=== PATIENT | female | born 1955 | race Two or more races ===

== ENCOUNTER 2022-05-21 12:05 | Inpatient (IN) | payer MEDICARE, SELFPAY ==
[2022-05-21 12:43] VITALS: BP 150/82; PULSE 72; RESP 17; TEMP 36.5; O2SAT 97; BMI 34.7
[2022-05-21] MEDS: CLARIFY ORDER NOTE (14:10)
[2022-05-21] MEDS: Loperamide 2 MG Capsule PO (17:14)
[2022-05-21] MEDS: 0.9% Saline Lock 10 ML Syringe IV (17:14)
[2022-05-21] MEDS: Menthol/Lanolin/Calamine/Znox 113 GM Tube 1 APPLIC TOPICAL ×2 (17:14→21:02)
--- NOTE | 2022-05-21 19:21 | HP.PCM_ITS ---
HPI - General General Date of Admission: 05/21/22 Date of Service: 05/21/22 Chief Complaint: Here for rehabilitation. HPI Narrative TIARA DELGADO, is a 66 Female who presents with followin04/01/2022 [facility] right ELVER total knee arthroplasty. 05/16/2022 Dr. Pastrana performs right knee manipulation under anesthesia for right knee contracture. 05/17/2022 Patient diagnosed with right femur fracture, no falls, no trauma at home. 05/20/2022 Doppler ultrasound bilateral lower extremities negative DVT. Right femur fracture treated with right knee immobilizer. 05/21/2022 Admit to TCU with debility, here for rehabilitation, strengthening, prior to discharge home with . [facility] Medical History (Updated 05/21/22 @ 19:[address] Lyle Perez MD) Celiac disease Depression Fibromyalgia GERD (gastroesophageal reflux disease) Hypertension Irritable bowel syndrome Obstructive sleep apnea Osteoarthritis of right knee Right femoral fracture Sjogrens syndrome Home Medications amlodipine 5 mg tablet 5 mg PO DAILY HTN 05/21/22 [History Last Taken Unknown] carboxymethylcellulose sodium 1 % eye liquid gel drops 2 drp EACH EYE DAILY PRN Dry Eyes 05/21/22 [History Last Taken Unknown] chlordiazepoxide-clidinium 5 mg-2.5 mg capsule 1 cap PO DAILY IBS 05/21/22 [History Last Taken Unknown] cholecalciferol (vitamin D3) 25 mcg (1,000 unit) tablet (Vitamin D3) 25 mcg PO DAILY vitamin D3 05/21/22 [History Last Taken Unknown] doxycycline hyclate 50 mg capsule 50 mg PO DAILY eyes 05/21/22 [History Last Taken Unknown] hydroxychloroquine 100 mg tablet 100 mg PO QHS Check with primary doctor 05/21/22 [History Last Taken Unknown] hydroxychloroquine 200 mg tablet 200 mg PO DAILY Check with primary doctor 05/21/22 [History Last Taken Unknown] multivitamin (Daily Multi-Vitamin tablet) 1 tab PO DAILY vitamin 05/21/22 [History Last Taken Unknown] multivitamin with minerals 1 tab PO DAILY vitamin 05/21/22 [History Last Taken Unknown] oxycodone-acetaminophen 5 mg-325 mg tablet (Percocet) 1 tab PO Q4H PRN Pain (Scale Score 6-10) 05/21/22 [History Last Taken Unknown] sodium fluoride 1.1 %-potassium nitrate 5 % dental paste (PreviDent 5000 Enamel Protect) 1 applic dental DAILY teeth 05/21/22 [History Last Taken Unknown] terbinafine HCl 1 % topical cream 1 applic topical BID PRN Rash 05/21/22 [History Last Taken Unknown] topiramate 100 mg tablet 50 mg PO QHS sjogrens 05/21/22 [History Last Taken Unknown] topiramate 100 mg tablet 100 mg PO DAILY sjogrens 05/21/22 [History Last Taken Unknown] trazodone 100 mg tablet 150 mg PO QHS sleep 05/21/22 [History Last Taken Unknown] valsartan 320 mg tablet 320 mg PO DAILY blood pressure 05/21/22 [History Last Taken Unknown] Allergy/AdvReac Type Severity Reaction Status Date / Time pregabalin [From Lyrica] Allergy Angioedema Verified 05/21/22 14:14 sertraline [From Zoloft] Allergy Hives Verified 05/21/22 14:14 Sulfa (Sulfonamide Allergy Rash Verified 05/21/22 14:04 Antibiotics) [sulfa drugs] mupirocin AdvReac Itching Verified 05/21/22 14:04 NSAIDS (Non-Steroidal AdvReac Chest Verified 05/21/22 14:04 Anti-Inflamma tightness Family History (Updated 05/21/22 @ 19:[address] Lyle Perez MD) Mother Diabetes Shortness of breath Liver disease CVA (cerebral vascular accident) Father Sepsis Surgical History (Updated 05/21/22 @ 19:[address] Lyle Perez MD) History of 2 sections History of surgical removal of ganglion cyst History of total left knee replacement History of total right hip arthroplasty History of total right knee replacement Social History (Updated 05/21/22 @ 19:[address] Lyle Perez MD) household members: spouse Smoking Status: Never smoker alcohol intake: current alcohol intake frequency: a few times a month Alcohol type: wine substance use type: does not use ROS Constitutional Constitutional: Denies chills, fever(s) or weight gain ENT HEENT: Denies headache(s), nasal congestion or nasal discharge Cardiovascular Cardiovascular: Denies chest pain or palpitations Respiratory/Chest Respiratory/Chest: Denies cough, excessive phlegm production or shortness of breath with exertion Gastrointestinal Gastrointestinal: Denies abdominal pain, nausea or vomiting Genitourinary Genitourinary: Denies dysuria Musculoskeletal Musculoskeletal: Denies joint pain or joint swelling Integumentary Integumentary: Denies rash or wounds Neurologic Neurologic: Denies focal weakness, numbness or tingling Psychiatric Psychiatric: Denies anxiety, auditory hallucinations, depression, homicidal ideation or suicidal ideation Vital Signs Vital Signs Vital Signs: 05/21/22 12:43 05/21/22 14:02 05/21/22 12:43 Temperature 97.7 F L Temperature Source Temporal Pulse Rate 72 Pulse Rhythm Regular Pulse Strength Normal (2+) Normal (2+) Respiratory Rate 17 Respiratory Effort Normal Non-Labored Respiratory Depth Normal Respiratory Pattern Normal Blood Pressure 150/82 H Blood Pressure Mean 104 Blood Pressure Source Monitor Blood Pressure Position Supine Blood Pressure Location Left Arm Pulse Ox 97 Oxygen Delivery Method Room Air Room Air Weight Weight: 86.183 kg Body Mass Index (BMI) 34.7 Physical Exam Const alert General Appearance: cooperative HEENT normocephalic Eyes PERRL and EOMs intact bilaterally Neck supple, no JVD and no carotid bruits Resp normal respiratory effort, normal air movement and clear to auscultation bilaterally Cardio regular rate and regular rhythm GI normal to inspection, nondistended, normoactive bowel sounds, non-tender and non-distended Bladder / Kidney Exam: catheter in place urethral (Guzman catheter.) Extremity normal capillary refill Extremity Narrative: Right knee immobilizer. General Extremity: Negative for edema Skin no rashes or lesions noted General Skin Exam: no breakdown Psych affect normal Appearance: appropriate Results Lab / Micro Data Micro: Microbiology 05/21/22 13:57 Nasal Secretion SARS-CoV-2 Antigen (Rapid) - Final Assessment & Plan Assessment/Plan (1) Debility: (2) Osteoarthritis of right knee: (3) History of total right knee replacement: (4) Right femoral fracture: (5) Celiac disease: (6) Depression: (7) Fibromyalgia: (8) GERD (gastroesophageal reflux disease): (9) Hypertension: (10) Irritable bowel syndrome: (11) Obstructive sleep apnea: (12) Sjogrens syndrome: PLAN: Plan 66 year old female with below past medical history recent right total knee arthroplasty, right knee manipulation under anesthesia, right femur fracture, deep vein thrombosis ruled out, admitted to TCU with debility, here for rehabilitation, strengthening, prior to discharge home with . * Debility - PT/OT. * Pain - Tylenol 1000mg q6h prn pain (1-5), Oxycodone 5mg q4h prn pain (6-10). * Bowel - Loperamide 2mg q2h prn diarrhea. * Adult immunization - Administer pneumonia vaccine, covid19 vaccine, flu vaccine as appropriate. * DVT prophylaxis - HAS-BLED 0, low risk of bleeding, Eagle score 7, high risk of DVT, overall risk high, Rx Xarelto 10mg daily x 30 days. * Hypertension - Losartan 100mg daily, Amlodipine 5mg daily. * IBS - Librax 2.5mg daily. * Acne rosacea - Doxycycline 50mg daily. * Dental - Fluoride dental daily. * Sjogren syndrome - Plaquenil 200mg, 100mg qhs. * Skin irritation - Calmoseptine topical bid. * Nutrition - MVI daily. * Dry eyes - Artificial tears 2 gtt ou daily prn. * Fibromyalgia - Topamax 100mg qam, 50mg qhs. * Insomnia - Trazodone 150mg qhs. * Vitamin D deficiency - D3 25mcg daily.
[2022-05-21] MEDS: Topiramate 100 MG Tablet 50 MG PO (20:51)
[2022-05-21] MEDS: traZODone 50 MG Tablet 150 MG PO (20:52)
[2022-05-21] MEDS: Hydroxychloroquine 200 MG Tablet 100 MG PO (20:53)
[2022-05-22] MEDS: Menthol/Lanolin/Calamine/Znox 113 GM Tube 1 APPLIC TOPICAL ×2 (05:10→21:38)
[2022-05-22] MEDS: amLODIPine 5 MG Tablet PO (05:10)
[2022-05-22] MEDS: Topiramate 100 MG Tablet PO (05:11)
[2022-05-22] MEDS: Losartan Potassium 100 MG Tablet PO (05:11)
[2022-05-22] MEDS: DOXYCYCLINE HYCLATE 50 MG CAPSULE PO (05:12)
[2022-05-22 06:00] LABS: Absolute Lymphocyte Count 0.87 X10^3/uL (0.83-4.51); Absolute Neutrophil Count 2.1 X10^3/uL (2.0-7.7); Basophil# 0.03 X10^3/uL; Basophil% 0.8 % (0-1); Eosinophil# 0.14 X10^3/uL; Eosinophils% 3.9 % (0-5); Hematocrit 31.4 % (37-47); Hemoglobin 9.8 g/dL (12.0-15.0); Lymphocyte # 0.87 X10^3/ul (0.83-4.51); Mean Corp Hgb Conc 31.2 g/dL (32-36); Mean Corpuscular Hgb 28.6 pg (27.0-32.0); Mean Corpuscular Volume 91.5 fL (81-99); Mean Platelet Vol. 9.7 fl (6.2-12.0); Monocyte# 0.48 X10^3/uL; Monocyte% 13.2 % (0-10); NRBC Flagged by Analyzer 0 % (0-5); Neutrophil % 57.8 % (47-70); Platelet Count 203 K/mm3 (150-450); RBC Distribution Width CV 13.6 % (11.6-14.6); RBC Distribution Width SD 45.9 fl (35.1-43.9); Red Blood Count 3.43 M/mm3 (4.2-5.4); White Blood Count 3.6 K/mm3 (4.4-11.0)
[2022-05-22 06:42] LABS: Anion Gap 7 (5-15); BUN 14 mg/dL (7-18); BUN/Creat Ratio 25.8 RATIO (10-20); Calcium,Total 8.6 mg/dL (8.5-10.1); Chloride 110 mmol/L (98-107); Creatinine, Serum 0.54 mg/dL (0.55-1.02); EST Glomerular Filtration Rate 120 mL/min (>60); Est Glom Filt Rate - Afr Amer 145 mL/min (>60); Estimated Creatinine Clearance 83.24 ml/min; Glucose 87 mg/dL (74-106); Potassium 3.5 mmol/L (3.5-5.1); Sodium Level 142 mmol/L (136-145)
[2022-05-22] MEDS: Psyllium 1 PACKET PO (08:09)
[2022-05-22] MEDS: Cholecalciferol (VIT D3) 25 MCG TABLET (1,000 UNITS) PO (08:12)
[2022-05-22] MEDS: Hydroxychloroquine 200 MG Tablet PO (08:13)
--- NOTE | 2022-05-22 09:04 | PCM.PN.DRR ---
TCU RX Drug Regimen Review Subjective: TCU Admission. 66 YOF presented to [facility] for right total knee arthroplasty, right knee manipulation under anesthesia, right femur fracture, deep vein thrombosis ruled out. Admitted to TCU with debility for strengthening and rehabilitation. Objective: Allergies pregabalin [From Lyrica] Allergy (Verified 05/21/22 14:14) Angioedema sertraline [From Zoloft] Allergy (Verified 05/21/22 14:14) Hives Sulfa (Sulfonamide Antibiotics) [sulfa drugs] Allergy (Verified 05/21/22 14:04) Rash mupirocin Adverse Reaction (Verified 05/21/22 14:04) Itching NSAIDS (Non-Steroidal Anti-Inflamma Adverse Reaction (Verified 05/21/22 14:04) Chest tightness Current Medications Generic Name Dose Route Start Last Admin Trade Name Freq PRN Reason Stop Dose Admin Acetaminophen 1,000 mg 05/21/22 19:53 Acetaminophen 500 Mg Tablet PO Q6H PRN PRN Pain Score 1-5 Amlodipine Besylate 5 mg 05/22/22 06:00 05/22/22 05:10 Amlodipine 5 Mg Tablet PO 5 mg DAILY CANDIE Administration Calamine/Phenol 1 applic 05/21/22 22:00 05/22/22 05:10 Menthol/Lanolin/Calamine/Znox 113 Gm Tube TOPICAL 1 applic 0600,2200 CANDIE Administration Protocol Chlordiazepoxide/Clidinium 2.5 mg 05/22/22 07:00 05/22/22 08:10 Clidinium/Chlordiazepoxide 2.5 Mg Capsule PO 2.5 mg DAILY@0700 CANDIE Administration Cholecalciferol 25 mcg 05/22/22 08:00 05/22/22 08:12 Cholecalciferol (Vit D3) 25 Mcg Tablet (1,000 Units) PO 25 mcg DAILYCM CANDIE Administration Doxycycline Hyclate 50 mg 05/22/22 06:00 05/22/22 05:12 Doxycycline Hyclate 50 Mg Capsule PO 50 mg DAILY CANDIE Administration Glycerin/Hypromellose/Polyethylene 2 drp 05/21/22 14:24 Glycerin/Hypromellose/Wkg597 15 Ml Bottle EACH EYE DAILY PRN Dry Eyes Hydroxychloroquine Sulfate 100 mg 05/21/22 22:00 05/21/22 20:53 Hydroxychloroquine 200 Mg Tablet PO 100 mg QHS CANDIE Administration Hydroxychloroquine Sulfate 200 mg 05/22/22 08:00 05/22/22 08:13 Hydroxychloroquine 200 Mg Tablet PO 200 mg DAILYCM [facility] Administration Loperamide HCl 2 mg 05/21/22 16:53 05/21/22 17:14 Loperamide 2 Mg Capsule PO 2 mg Q2H PRN PRN Administration DIARRHEA/LOOSE STOOLS Losartan Potassium 100 mg 05/22/22 06:00 05/22/22 05:11 Losartan Potassium 100 Mg Tablet PO 100 mg DAILY CANDIE Administration Multivitamins/Minerals 1 tablet 05/22/22 10:00 Multivitamins,Ther W-Minerals Tablet PO DAILY@1000 [facility] Oxycodone HCl 5 mg 05/21/22 14:22 Oxycodone 5 Mg Tablet PO Q4H PRN Pain (Scale Score 6-10) Psyllium Hydrophilic Mucilloid 1 packet 05/23/22 07:00 05/22/22 08:09 Psyllium 1 Packet PO 1 packet 0700 [facility] Administration Rivaroxaban 10 mg 05/22/22 17:00 Rivaroxaban 10 Mg Tablet PO 06/21/22 17:01 DINNER [facility] Sodium Chloride 10 - 40 ml 05/21/22 13:17 05/21/22 17:14 0.9% Saline Lock 10 Ml Syringe IV 10 ml UD PRN Administration SALINE FLUSH Topiramate 50 mg 05/21/22 22:00 05/21/22 20:51 Topiramate 100 Mg Tablet PO 50 mg QHS [facility] Administration Topiramate 100 mg 05/22/22 06:00 05/22/22 05:11 Topiramate 100 Mg Tablet PO 100 mg DAILY [facility] Administration Trazodone HCl 150 mg 05/21/22 22:00 05/21/22 20:52 Trazodone 50 Mg Tablet PO 150 mg QHS [facility] Administration Tuberculin PPD 0.1 ml 05/22/22 10:00 Tuberculin,Purif.Prot.Deriv. 50 Tu/Ml Vial ID 05/22/22 10:01 X1 ONE Tuberculin PPD 0.1 ml 05/29/22 10:00 Tuberculin,Purif.Prot.Deriv. 50 Tu/Ml Vial ID 05/29/22 10:01 X1 ONE Problem List (Last Updated 05/21/22 @ 19:[address] Lyle Perez MD) Debility (Acute) Sjogrens syndrome (Acute) Obstructive sleep apnea (Acute) Irritable bowel syndrome (Acute) Hypertension (Chronic) GERD (gastroesophageal reflux disease) (Acute) Fibromyalgia (Acute) Depression (Acute) Celiac disease (Acute) Right femoral fracture (Acute) History of total right knee replacement (Acute) Osteoarthritis of right knee (Acute) Vital Signs Temp Pulse Resp BP Pulse Ox O2 Del Method 97.7 F L 72 17 150/82 H 97 Room Air 05/21/22 12:43 05/21/22 12:43 05/21/22 12:43 05/21/22 12:43 05/21/22 12:43 05/21/22 12:43 Oxygen Delivery Method Room Air Weight: 86.183 kg Body Mass Index (BMI) 34.7 Sodium 142 mmol/L (136-145) 05/22/22 05:25 Potassium 3.5 mmol/L (3.5-5.1) 05/22/22 05:25 Chloride 110 mmol/L (98-107) H 05/22/22 05:25 Carbon Dioxide 25.0 mmol/L (21.0-32.0) 05/22/22 05:25 Anion Gap 7 (5-15) 05/22/22 05:25 BUN 14 mg/dL (7-18) 05/22/22 05:25 Creatinine 0.54 mg/dL (0.55-1.02) L 05/22/22 05:25 Est GFR (MDRD) Af Amer 145 mL/min (>60) 05/22/22 05:25 Est GFR (MDRD) Non-Af 120 mL/min (>60) 05/22/22 05:25 BUN/Creatinine Ratio 25.8 RATIO (10-20) H 05/22/22 05:25 Glucose 87 mg/dL (74-106) 05/22/22 05:25 Assessment/Plan: 1. Pain: acetaminophen 1000mg PO Q6H PRN pain 1-5 and oxycodone 5mg PO Q4H PRN pain 6-10. Please continue to monitor for increased pain and PRN usage. Resident has not had any doses so far. 2. Bowel: loperamide 2mg PO Q2H PRN diarrhea. Resident has had 1 dose but there have not been any documented bowel movements. Please continue to monitor for diarrhea and PRN usage. 3. DVT prophylaxis: rivaroxaban 10mg PO daily thru 06/21/22. Please continue to monitor for S/S of bleeding/DVT and hemoglobin (last 9.8g/dL). 4. Hypertension: losartan 100mg PO daily and amlodipine 5mg PO daily. Please continue to monitor BP (last 150/82), potassium (last 3.5mmol/L), renal function and swelling. 5. IBS: clidinium/chlordiazepoxide 2.5mg PO daily and psyllium 1packet PO daily (per nurse, patient refused to take Librium without psyllium). Please continue to monitor for S/S of IBS, anticholinergic side effects (BEERs criteria), falls/fractures (BEERs criteria) and dementia (BEERs criteria). 6. Sjogren syndrome: hydroxychloroquine 200mg PO AM and 100mg PO QHS. Please continue to monitor for S/S of Sjogren syndrome, rash, visual disturbances, muscle pain and CBC. 7. Fibromyalgia: topiramate 100mg PO AM and 50mg PO QHS. Please continue to monitor for muscle pain, falls/fractures (BEERs criteria), dizziness and drowsiness. 8. Acne rosacea: doxycycline hyclate 50mg PO daily. Please continue to monitor for S/S of rosacea, upset stomach and diarrhea (loperamide ordered). 9. Dry eyes: artificial tears 2gtt OU daily PRN dry eyes. Resident has not had any PRN doses. Please continue to monitor for dry eyes and PRN usage. 10. Nutrition/vitamin D deficiency: multivitamin with minerals 1T PO daily and cholecalciferol 25mcg PO daily. Please consider ordering a vitamin D level as there is no level in the chart. Thanks. 11. Dental: fluoride dental daily. Please continue to monitor. Assessment/Plan for indications treated with psychotropic medications: 1. Insomnia: trazodone 150mg PO QHS. Please continue to monitor for insomnia, excessive drowsiness and dizziness. Please consider GDR by 11/2022 if clinically appropriate. Thanks. Medical chart and medication regimen reviewed. The following medication irregularities or issues were identified: *1. Cholecalciferol 25mcg PO daily. Please consider ordering a vitamin D level as there is no level in the chart. Thanks. *2. Trazodone 150mg PO QHS. Please consider GDR by 11/2022 if clinically appropriate. Thanks. Date of Note:: 05/22/22
[2022-05-22] MEDS: Multivitamins,Ther W-Minerals Tablet 1 TABLET PO (10:45)
[2022-05-22] MEDS: Tuberculin,Purif.prot.deriv. 50 TU/ML Vial 0.1 ML ID (10:47)
[2022-05-22 13:31] VITALS: RESP 16
[2022-05-22] MEDS: oxyCODONE 5 MG Tablet PO (14:26)
[2022-05-22 15:37] VITALS: BP 155/75; PULSE 71; RESP 16; TEMP 36.7; O2SAT 99
[2022-05-22] MEDS: Acetaminophen 500 MG Tablet 1000 MG PO (15:37)
[2022-05-22] MEDS: Rivaroxaban 10 MG Tablet PO (17:44)
[2022-05-22] MEDS: Baclofen 10 MG Tablet PO (17:44)
[2022-05-22] MEDS: Topiramate 100 MG Tablet 50 MG PO (21:39)
[2022-05-22] MEDS: traZODone 50 MG Tablet 150 MG PO (21:39)
[2022-05-22] MEDS: Hydroxychloroquine 200 MG Tablet 100 MG PO (21:40)
[2022-05-23] MEDS: Menthol/Lanolin/Calamine/Znox 113 GM Tube 1 APPLIC TOPICAL ×2 (05:03→21:11)
[2022-05-23] MEDS: Losartan Potassium 100 MG Tablet PO (05:03)
[2022-05-23] MEDS: amLODIPine 5 MG Tablet PO (05:03)
[2022-05-23] MEDS: Topiramate 100 MG Tablet PO (05:03)
[2022-05-23] MEDS: DOXYCYCLINE HYCLATE 50 MG CAPSULE PO (05:04)
[2022-05-23 05:15] VITALS: BP 130/59; PULSE 64; RESP 16
[2022-05-23] MEDS: Psyllium 1 PACKET PO (08:10)
[2022-05-23] MEDS: Cholecalciferol (VIT D3) 25 MCG TABLET (1,000 UNITS) PO ×2 (08:11→08:29)
[2022-05-23] MEDS: Baclofen 10 MG Tablet PO ×2 (08:29→15:55)
[2022-05-23] MEDS: Hydroxychloroquine 200 MG Tablet PO (08:29)
[2022-05-23] MEDS: Multivitamins,Ther W-Minerals Tablet 1 TABLET PO (08:33)
[2022-05-23] MEDS: oxyCODONE 5 MG Tablet PO (09:23)
[2022-05-23] MEDS: Acetaminophen 500 MG Tablet 1000 MG PO (09:27)
--- NOTE | 2022-05-23 10:53 | NURSING ---
Spanish Tutor Note; Activity Asset: Jesus Alberto Oro is independent in her choice of daily activities. She enjoys coloring, reading and spending time w/family. Preethi did aske for children coloring pages over adult she stated they are more fun to color. Family will come visit daily.
--- NOTE | 2022-05-23 13:42 | CASEMGMT ---
Social Work Met with patient to complete initial assessment. Introduced self and role. Educated to [facility] insurance with NRD 05/23 and continued stay is not guaranteed with each review. Pt's goal is to return home with . Pt has one step to enter. SW provided ramp resources as pt is TTWB RE. Pt has f/u appt with on 06/05. Discussed code status and MOLST form. Pt confirmed full code. MOLST placed in Dr folder. Verified contacts with pt and asked if pt had any children. Pt states she has two daughters, one living in [place], another living in [place]. SW asked if pt wanted both of them listed as contacts. Pt replied that her oldest daughter, the one that lives in [place], does not talk to her anymore, so they don't have a relationship. The youngest daughter, the one that lives in [place], wasn't talking to pt for three years this [2021] but began talking to her since then. SW offered to explore story further if pt was comfortable sharing. Pt initially declined stating ?it would do no good?, however, then spontaneously began an expanse discussion about family stressors, including strained relationships with her two daughters, past martial infidelity on her ?s part. Pt voiced skepticism about therapy d/t belief therapy increased strain with daughters. SW provided supportive listening and acknowledged feelings. SW inquired about coping mechanisms. Pt voiced that a primary interest and support is her 200+ doll collection. Pt explained how she enjoys shopping at local stores for doll clothes and accessories, holding conversations with dolls, and has fondness over two specific dolls that pt has named and refers to as pt's grandchildren. Pt noted to defend herself saying it's only because I can't have grandchildren. I'm not nuts!. SW observed during this conversation making avoidant eye contact, looking out the window, not using names when discussing pt?s own children, with the exception when the topic of dolls and coping mechanisms were discussed. ?When talking about the dolls, pt making piercing eye contact, grinning, giddy mood. Outside of conversation with the dolls, observed flat affect, tearful and depressed mood; conversation tangential. SW reviewed options for emotional health including referrals for counseling and medication management. SW provided much supportive listening and reflection. Will continue to follow during pt stay. Aida Rebolledo, [employer] WORKER RECEIVING CHECKER
[2022-05-23 15:16] VITALS: BP 101/61; PULSE 68; RESP 16; TEMP 36; O2SAT 99
[2022-05-23] MEDS: Rivaroxaban 10 MG Tablet PO (16:00)
[2022-05-23 20:40] VITALS: PULSE 80; RESP 16; O2SAT 95
[2022-05-23] MEDS: traZODone 50 MG Tablet 150 MG PO (21:09)
[2022-05-23] MEDS: Hydroxychloroquine 200 MG Tablet 100 MG PO (21:10)
[2022-05-23] MEDS: Topiramate 100 MG Tablet 50 MG PO (21:10)
[2022-05-24] MEDS: DOXYCYCLINE HYCLATE 50 MG CAPSULE PO (05:44)
[2022-05-24] MEDS: Topiramate 100 MG Tablet PO (05:44)
[2022-05-24] MEDS: Losartan Potassium 100 MG Tablet PO (05:44)
[2022-05-24] MEDS: amLODIPine 5 MG Tablet PO (05:44)
[2022-05-24] MEDS: Menthol/Lanolin/Calamine/Znox 113 GM Tube 1 APPLIC TOPICAL ×2 (05:45→22:21)
[2022-05-24] MEDS: Psyllium 1 PACKET PO (06:21)
[2022-05-24 07:18] LABS: Hematocrit 35.5 % (37-47); Hemoglobin 11.3 g/dL (12.0-15.0)
[2022-05-24] MEDS: Hydroxychloroquine 200 MG Tablet PO (08:57)
[2022-05-24] MEDS: Acetaminophen 500 MG Tablet 1000 MG PO ×2 (09:00→22:45)
[2022-05-24] MEDS: oxyCODONE 5 MG Tablet PO ×2 (09:00→23:46)
[2022-05-24] MEDS: Multivitamins,Ther W-Minerals Tablet 1 TABLET PO (10:02)
[2022-05-24] MEDS: Baclofen 10 MG Tablet PO ×2 (10:04→22:45)
[2022-05-24 16:00] VITALS: BP 137/73; PULSE 102; RESP 17; TEMP 36.4; O2SAT 92
[2022-05-24] MEDS: Rivaroxaban 10 MG Tablet PO (17:23)
--- NOTE | 2022-05-24 22:15 | NURSING ---
Questioned pt why catheter is in place. Denies any issues w/ retention prior to transfer from [facility]. Large amount of yellow sediment noted in tubing. Discussed risks of leaving resendiz in place for long than needed. Also informed pt retention may become an issue w/ buildup of sediment and explained how sediment collects in the tubing. Verbalizes several concerns w/ resendiz removal including difficulty toileting- such as use of a bedpan or BSC, issues w/ incontinence, and the inability to void. Informed pt staff would perform bladder scans post cath removal to ensure bladder is emptying. Pt continues to verbalize hesitancy w/ resendiz catheter removal and refuses at this time. Pt also c/o a pink area to the right lower leg near the distal end of the immobilizer. This nurse noted a small, pink open area. Offered to place a bandaid of square mepliex to pad and protect the affected area but pt declines. Will continue to monitor.
[2022-05-24] MEDS: traZODone 50 MG Tablet 150 MG PO (22:41)
[2022-05-24] MEDS: Hydroxychloroquine 200 MG Tablet 100 MG PO (22:42)
[2022-05-24] MEDS: Topiramate 100 MG Tablet 50 MG PO (22:44)
[2022-05-25] MEDS: Menthol/Lanolin/Calamine/Znox 113 GM Tube 1 APPLIC TOPICAL ×2 (05:31→22:05)
[2022-05-25] MEDS: amLODIPine 5 MG Tablet PO (05:32)
[2022-05-25] MEDS: Losartan Potassium 100 MG Tablet PO (05:32)
[2022-05-25] MEDS: Topiramate 100 MG Tablet PO (05:33)
[2022-05-25] MEDS: DOXYCYCLINE HYCLATE 50 MG CAPSULE PO (05:34)
--- NOTE | 2022-05-25 05:43 | NURSING ---
Pt requests Metamucil and Librax be administered as close to 7am as possible.
[2022-05-25] MEDS: Psyllium 1 PACKET PO (07:22)
[2022-05-25] MEDS: Cholecalciferol (VIT D3) 25 MCG TABLET (1,000 UNITS) PO (08:24)
[2022-05-25] MEDS: Hydroxychloroquine 200 MG Tablet PO (08:25)
[2022-05-25] MEDS: Multivitamins,Ther W-Minerals Tablet 1 TABLET PO (10:01)
[2022-05-25] MEDS: oxyCODONE 5 MG Tablet PO ×2 (10:03→22:50)
[2022-05-25] MEDS: Acetaminophen 500 MG Tablet 1000 MG PO ×2 (10:04→22:50)
--- NOTE | 2022-05-25 10:32 | NURSING ---
resendiz removed at 1007 w/out difficulty, before removing resendiz, noted attends soaked. lots of sediment in tubing. incont care provided. clean attends and linens given. pt c/o pain in Rt ankle, opened immobilizer and noted red sore/blister to posterior ankle. mepilex applied and ABD placed inside immobilizer to protect skin from metal bars inside immobilizer. readjusted immobilizer and pt feels that it was much better. pt very anxious and refusing to get OOB today. Educated on the importance of getting up and sitting up for a few hours since no therapy today. will keep encouraging.
[2022-05-25 10:38] VITALS: RESP 18
[2022-05-25 15:55] VITALS: BP 127/76; PULSE 81; RESP 17; TEMP 36.2; O2SAT 94
[2022-05-25] MEDS: Rivaroxaban 10 MG Tablet PO (17:21)
[2022-05-25] MEDS: traZODone 50 MG Tablet 150 MG PO (22:05)
[2022-05-25] MEDS: Hydroxychloroquine 200 MG Tablet 100 MG PO (22:06)
[2022-05-25] MEDS: Topiramate 100 MG Tablet 50 MG PO (22:07)
[2022-05-26] MEDS: Menthol/Lanolin/Calamine/Znox 113 GM Tube 1 APPLIC TOPICAL ×2 (06:35→22:06)
[2022-05-26] MEDS: DOXYCYCLINE HYCLATE 50 MG CAPSULE PO (06:35)
[2022-05-26] MEDS: Losartan Potassium 100 MG Tablet PO (06:35)
[2022-05-26] MEDS: Topiramate 100 MG Tablet PO (06:35)
[2022-05-26] MEDS: amLODIPine 5 MG Tablet PO (06:35)
[2022-05-26] MEDS: Psyllium 1 PACKET PO (06:38)
[2022-05-26 06:48] VITALS: BP 124/54; PULSE 62; RESP 16
[2022-05-26] MEDS: Cholecalciferol (VIT D3) 25 MCG TABLET (1,000 UNITS) PO (08:06)
[2022-05-26] MEDS: Multivitamins,Ther W-Minerals Tablet 1 TABLET PO (08:07)
[2022-05-26] MEDS: Hydroxychloroquine 200 MG Tablet PO (08:07)
--- NOTE | 2022-05-26 10:11 | NURSING ---
Refused Covid booster and educated and provided education pamphlet as well.
[2022-05-26 15:22] VITALS: BP 124/60; PULSE 74; RESP 18; TEMP 36.2; O2SAT 98
[2022-05-26] MEDS: Acetaminophen 500 MG Tablet 1000 MG PO (15:35)
[2022-05-26] MEDS: oxyCODONE 5 MG Tablet PO (15:35)
[2022-05-26] MEDS: Rivaroxaban 10 MG Tablet PO (17:01)
--- NOTE | 2022-05-26 19:51 | PCA ---
this inside account executive answered pt call light and went into pt room pt wanted a plastic bag she had by the sink and a hot wash cloth. inside account executive gave her the bag and a hot wash cloth, then she asked inside account executive where her eye drops were. inside account executive explained to pt they didnt know as they just came on shift and hasnt been in her room until then, inside account executive asked if eye drops were prescription and pt started yelling at inside account executive telling them no they were not. inside account executive again told pt that they had no clue where her eye drops were. inside account executive left room as pt was starting to yell again and went and found her nurse and informed her of the situation.
[2022-05-26] MEDS: Topiramate 100 MG Tablet 50 MG PO (22:03)
[2022-05-26] MEDS: traZODone 50 MG Tablet 150 MG PO (22:03)
[2022-05-26] MEDS: Hydroxychloroquine 200 MG Tablet 100 MG PO (22:03)
--- NOTE | 2022-05-27 03:49 | NURSING ---
While on bed [facility], patient accidently voided on right knee immobilizer, and would like a new one. Will notify Therapy.
[2022-05-27] MEDS: DOXYCYCLINE HYCLATE 50 MG CAPSULE PO (06:26)
[2022-05-27] MEDS: Topiramate 100 MG Tablet PO (06:27)
[2022-05-27] MEDS: Psyllium 1 PACKET PO (06:28)
[2022-05-27] MEDS: Losartan Potassium 100 MG Tablet PO (06:28)
[2022-05-27] MEDS: amLODIPine 5 MG Tablet PO (06:28)
[2022-05-27] MEDS: Menthol/Lanolin/Calamine/Znox 113 GM Tube 1 APPLIC TOPICAL ×2 (06:33→21:36)
[2022-05-27] MEDS: Hydroxychloroquine 200 MG Tablet PO (07:49)
[2022-05-27] MEDS: Cholecalciferol (VIT D3) 25 MCG TABLET (1,000 UNITS) PO (07:49)
[2022-05-27 08:15] VITALS: BMI 33.3
[2022-05-27 09:42] VITALS: BMI 33.3
[2022-05-27] MEDS: Multivitamins,Ther W-Minerals Tablet 1 TABLET PO (09:56)
[2022-05-27] MEDS: oxyCODONE 5 MG Tablet PO ×2 (10:16→21:33)
[2022-05-27] MEDS: Acetaminophen 500 MG Tablet 1000 MG PO ×2 (10:16→21:34)
--- NOTE | 2022-05-27 15:40 | CASEMGMT ---
Social Work BIMS () and PHQ-9 (06/30) completed for MDS assessment. SW explored if pt has ever been given any mental health diagnoses, named several. Pt denied. SW inquired about hallucinations, delusions, psychosis. Pt denied. SW inquired about PCP. Pt provided and chart updated. SW updated pt insurance NRD 05/28 and continued stay is not guaranteed. Pt taken aback stating she cannot go home until she can walk again, which will be at least 6 more weeks. SW empathized, however, offered therapy training for or SNF options. Pt reiterated she cannot go home until she can walk again, but also does not want a SNF because I need the therapy and those places just have people lay there. SW educated SNFs provide therapy and patient care. Educated insurance will cover part B therapies but room and board with OOP. Pt became tearful and spontaneously began expressing concerns with finances. SW provided supportive listening. SW offered to assist with Medicaid application. Pt became silent and would not respond to this worker. SW provided emotional support and offered to let pt process all of the information, and SW to answer questions at [facility] tomorrow. Pt did not reply. SW exited room. SW to bring SNF list and ELADIA kelvin to [facility]. Aida Rebolledo, WORKERS COMPENSATION SPECIALIST SECURITY CHIEF MUSEUM
[2022-05-27 16:00] VITALS: BP 104/54; PULSE 70; RESP 18; TEMP 36.4; O2SAT 97
[2022-05-27] MEDS: Rivaroxaban 10 MG Tablet PO (17:56)
[2022-05-27 19:00] VITALS: PULSE 52; RESP 16; O2SAT 97
[2022-05-27] MEDS: Hydroxychloroquine 200 MG Tablet 100 MG PO (21:33)
[2022-05-27] MEDS: Topiramate 100 MG Tablet 50 MG PO (21:33)
[2022-05-27] MEDS: traZODone 50 MG Tablet 150 MG PO (21:33)
[2022-05-28] MEDS: DOXYCYCLINE HYCLATE 50 MG CAPSULE PO (06:30)
[2022-05-28] MEDS: Topiramate 100 MG Tablet PO (06:31)
[2022-05-28] MEDS: Losartan Potassium 100 MG Tablet PO (06:31)
[2022-05-28] MEDS: amLODIPine 5 MG Tablet PO (06:31)
[2022-05-28] MEDS: Psyllium 1 PACKET PO (06:31)
[2022-05-28] MEDS: Menthol/Lanolin/Calamine/Znox 113 GM Tube 1 APPLIC TOPICAL ×2 (06:32→20:23)
[2022-05-28] MEDS: Hydroxychloroquine 200 MG Tablet PO (08:17)
[2022-05-28] MEDS: Cholecalciferol (VIT D3) 25 MCG TABLET (1,000 UNITS) PO (08:17)
[2022-05-28] MEDS: Acetaminophen 500 MG Tablet 1000 MG PO (08:18)
[2022-05-28] MEDS: oxyCODONE 5 MG Tablet PO (08:18)
--- NOTE | 2022-05-28 08:49 | NURSING ---
Home Sales Service Professional Note; MDS Complete
[2022-05-28] MEDS: Multivitamins,Ther W-Minerals Tablet 1 TABLET PO (09:36)
[2022-05-28 09:39] VITALS: PULSE 57; RESP 16; O2SAT 98
--- NOTE | 2022-05-28 09:48 | CASEMGMT ---
Social Work IDT met with patient and via conference call for care plan meeting. Discussed patient's progress in PT/OT/SN. Educated to [facility] insurance with NRD 05/28 and continued stay is not guaranteed. Therapy encouraged participation and attempting tasks more independently. Revisited DC options, home vs SNF. Provided list of SNFs in [facility] and within 20 miles of home address of [place] via [employer], along with Medicaid application. Inquired if can assist pt at home, as pt is stating she cannot return home until able to ambulate. unsure about assistance. Therapy offered training for . SW offered ongoing assistance. SW to continue to follow. Aida Rebolledo, JEREMIE SDE
--- NOTE | 2022-05-28 10:18 | PCM.PROGNOTE ---
Subjective Subjective Patient seen. Patient has painful elongated toenails 1 through 5 bilaterally. Patient has dry left heel secondary to dry skin and excessive ambulation on the left side due to nonweightbearing status on the right side. Patient in TCU due to a femoral fracture that she is recovering from. Objective Data Objective Data Vital Signs: Vital Signs Temp Pulse Resp BP Pulse Ox O2 Del Method 97.5 F L 57 L 16 104/54 L 98 Room Air 05/27/22 16:00 05/28/22 09:39 05/28/22 09:39 05/27/22 16:00 05/28/22 09:39 05/28/22 09:39 Oxygen Delivery Method Room Air Weight: 82.508 kg Body Mass Index (BMI) 33.3 Intake & Output: Intake and Output for Last 24 Hours 05/26/22 05/27/22 05/28/22 23:59 23:59 23:59 Intake Total 960 / 960 600 / 600 Output Total 767 / 767 Balance 193 / 193 600 / 600 Lab / Micro Data Result Diagrams: 05/24/22 06:35 05/22/22 05:25 Micro: Microbiology 05/25/22 07:28 Nasal Secretion SARS-CoV-2 Antigen (Rapid) - Final 05/23/22 09:10 Nasal Secretion SARS-CoV-2 Antigen (Rapid) - Final 05/21/22 13:57 Nasal Secretion SARS-CoV-2 Antigen (Rapid) - Final Physical Exam Narrative Patient seen bedside neurovascular status intact. Callusing to the left heel noted. Painful elongated toenails with thickening and subungual debris noted to digits 1 through 5 bilaterally. The hallux nails bilaterally are diffusely thickened with ingrowing to medial lateral nail borders. No skin breaks or other concerns at this time. Assessment & Plan Assessment/Plan (1) Tinea unguium: PLAN: Exam performed. Toenails 1 through 5 bilaterally elongated dystrophic subungual debris were debrided in length and thickness without incident using sterile nail nippers. Some bleeding noted to hallux nails Band-Aids applied bilaterally. Due to dry xerotic left heel with some burning to site. Recommend daily application of ammonium lactate this was ordered for patient. Podiatry will sign off. (2) Pain in right toe(s): (3) Pain in left toe(s):
[2022-05-28 16:00] VITALS: BP 96/62; PULSE 70; RESP 16; TEMP 36.3; O2SAT 97
--- NOTE | 2022-05-28 16:44 | CASEMGMT ---
Social Work Insurance issued LCD 05/30, DC 05/31. SW spoke with to update on DC date. Spoke with at length and reviewed appeal rights, home and SNF options, with insurance coverage, Medicaid eligibility, skilled HHC, and DME coordination. still unsure if pt can return home at her level of care. SW offered attend therapy training tomorrow to see how pt is functioning and if can assist pt at home. agreed. SW coordinated time with therapists. SW stressed if pt needs a SNF, options will need to be provided tomorrow to start referrals, and encouraged to complete [facility] application to determine eligibility. SW encouraged to speak with pt this evening to discuss options. expressed understanding and appreciative of assistance. SW spoke with pt in room to explain above information. Pt did not reply, but shook head 'yes' to understanding. NOM[facility] and appeal rights provided to pt. SW to continue to follow. Plan: DC 05/31 home vs SNF JEREMIE Rosen
[2022-05-28] MEDS: Rivaroxaban 10 MG Tablet PO (18:02)
[2022-05-28] MEDS: Topiramate 100 MG Tablet 50 MG PO (20:18)
[2022-05-28] MEDS: Hydroxychloroquine 200 MG Tablet 100 MG PO (20:19)
[2022-05-28] MEDS: traZODone 50 MG Tablet 150 MG PO (20:19)
[2022-05-29] MEDS: Acetaminophen 500 MG Tablet 1000 MG PO ×3 (01:22→20:31)
[2022-05-29] MEDS: oxyCODONE 5 MG Tablet PO ×3 (01:24→20:30)
[2022-05-29 05:50] LABS: Absolute Lymphocyte Count 1.17 X10^3/uL (0.83-4.51); Absolute Neutrophil Count 2.7 X10^3/uL (2.0-7.7); Basophil# 0.05 X10^3/uL; Basophil% 1.1 % (0-1); Eosinophils% 4.3 % (0-5); Hematocrit 36.4 % (37-47); Hemoglobin 11.4 g/dL (12.0-15.0); Lymphocyte # 1.17 X10^3/ul (0.83-4.51); Lymphocyte % 25.3 % (19-41); Mean Corp Hgb Conc 31.3 g/dL (32-36); Mean Corpuscular Hgb 28.6 pg (27.0-32.0); Mean Corpuscular Volume 91.2 fL (81-99); Mean Platelet Vol. 9.3 fl (6.2-12.0); Monocyte# 0.45 X10^3/uL; Monocyte% 9.7 % (0-10); NRBC Flagged by Analyzer 0 % (0-5); Neutrophil # 2.68 X10^3/uL (2.7-7.7); Neutrophil % 58.1 % (47-70); Platelet Count 371 K/mm3 (150-450); RBC Distribution Width CV 13.4 % (11.6-14.6); Red Blood Count 3.99 M/mm3 (4.2-5.4); White Blood Count 4.6 K/mm3 (4.4-11.0)
[2022-05-29 06:17] LABS: Anion Gap 5 (5-15); BUN 13 mg/dL (7-18); BUN/Creat Ratio 19.8 RATIO (10-20); Chloride 110 mmol/L (98-107); Creatinine, Serum 0.66 mg/dL (0.55-1.02); EST Glomerular Filtration Rate 96 mL/min (>60); Est Glom Filt Rate - Afr Amer 116 mL/min (>60); Estimated Creatinine Clearance 68.11 ml/min; Glucose 92 mg/dL (74-106); Potassium 4.1 mmol/L (3.5-5.1); Sodium Level 141 mmol/L (136-145)
[2022-05-29] MEDS: DOXYCYCLINE HYCLATE 50 MG CAPSULE PO (06:49)
[2022-05-29] MEDS: amLODIPine 5 MG Tablet PO (06:50)
[2022-05-29] MEDS: Losartan Potassium 100 MG Tablet PO (06:50)
[2022-05-29] MEDS: Menthol/Lanolin/Calamine/Znox 113 GM Tube 1 APPLIC TOPICAL ×2 (06:50→20:20)
[2022-05-29] MEDS: Topiramate 100 MG Tablet PO (06:50)
[2022-05-29] MEDS: Psyllium 1 PACKET PO (06:51)
[2022-05-29 06:54] VITALS: BP 139/72; PULSE 65
[2022-05-29] MEDS: Multivitamins,Ther W-Minerals Tablet 1 TABLET PO (08:46)
[2022-05-29] MEDS: Cholecalciferol (VIT D3) 25 MCG TABLET (1,000 UNITS) PO (08:46)
[2022-05-29] MEDS: Hydroxychloroquine 200 MG Tablet PO (08:46)
[2022-05-29] MEDS: Tuberculin,Purif.prot.deriv. 50 TU/ML Vial 0.1 ML ID (09:02)
--- NOTE | 2022-05-29 10:38 | CASEMGMT ---
Addendum entered by Aida Rebolledo 05/29/22 14:16: Medical records submitted. Original Note: Social Work Received voicemail from stating he filed an appeal. SW to await [facility] medical records request. JEREMIE Rosen
--- NOTE | 2022-05-29 14:17 | CASEMGMT ---
Addendum entered by Aida Rebolledo 05/30/22 12:32: contacted this worker that pt lost appeal. IDT notified. Plan is home and to transport at 1800. Addendum entered by Aida Rebolledo 05/30/22 11:29: [facility] [place] [facility] [place] beds or w/c in stock. SW spoke with and confirmed these are needed for DC. SW canceled referral to [facility] and sent referral to [facility] via CarePort. Original Note: Social Work SW spoke with to follow up on therapy training and DC plans. expressed pt is moving better than he thought, although he would like additional therapy in TCU, if her appeal is lost, can care for pt at home. Reviewed needs: hospital bed, BSC, w/c with elevating leg rests, and skilled HHC. SW offered to provide skilled HHC list, denied and said for SW to refer to several agencies in the area that can accept pt's insurance. SW sent several referrals via CarePort. Referred to [facility] for DME needs. states he can transport pt. Plan: DC home 05/31, pending appeal, HHC PT/OT/SN/ADAIR, hospital bed, BSC, w/c JEREMIE RosenW
[2022-05-29 15:08] VITALS: BP 114/57; PULSE 69; RESP 16; TEMP 36.6; O2SAT 100
[2022-05-29] MEDS: Rivaroxaban 10 MG Tablet PO (16:40)
--- NOTE | 2022-05-29 19:06 | DS.PCM_ITS ---
Providers Date of Admission: 05/21/22 Primary Care Physician: Dr. Malathi Dick MD Consultations 05/27/22 08:12 Consult: Podiatry Routine Consulting Provider: Cong Levy Reason for Consult: General foot care. EMERGENT Consult: No MD Notified: Yes Date Notified: 05/27/22 Time Notified: 08:12 Method of Notification: Answering Service Reason For Visit: RIGHT FEMUR FRACTURE Diagnosis Discharge Diagnosis (1) Tinea unguium: Status: Acute Code(s): B35.1 - Tinea unguium (2) Pain in right toe(s): Status: Acute Code(s): M79.674 - Pain in right toe(s) (3) Pain in left toe(s): Status: Acute Code(s): M79.675 - Pain in left toe(s) Plan 66 year old female with below past medical history recent right total knee arthroplasty, right knee manipulation under anesthesia, right femur fracture, deep vein thrombosis ruled out, admitted to TCU with debility, here for rehabilitation, strengthening, prior to discharge home with . * Debility - PT/OT. * Pain - Tylenol 1000mg q6h prn pain (1-5), Oxycodone 5mg q4h prn pain (6-10). * Bowel - Loperamide 2mg q2h prn diarrhea. * Adult immunization - Administer pneumonia vaccine, covid19 vaccine, flu vaccine as appropriate. * DVT prophylaxis - HAS-BLED 0, low risk of bleeding, Eagle score 7, high risk of DVT, overall risk high, Rx Xarelto 10mg daily x 30 days. * Hypertension - Losartan 100mg daily, Amlodipine 5mg daily. * IBS - Librax 2.5mg daily. * Acne rosacea - Doxycycline 50mg daily. * Dental - Fluoride dental daily. * Sjogren syndrome - Plaquenil 200mg, 100mg qhs. * Skin irritation - Calmoseptine topical bid. * Nutrition - MVI daily. * Dry eyes - Artificial tears 2 gtt ou daily prn. * Fibromyalgia - Topamax 100mg qam, 50mg qhs. * Insomnia - Trazodone 150mg qhs. * Vitamin D deficiency - D3 25mcg daily. Medications at Discharge Home Medications amlodipine 5 mg tablet 5 mg PO DAILY HTN 05/21/22 carboxymethylcellulose sodium 1 % eye liquid gel drops 2 drp EACH EYE DAILY PRN Dry Eyes 05/21/22 chlordiazepoxide-clidinium 5 mg-2.5 mg capsule 1 cap PO DAILY IBS 05/21/22 cholecalciferol (vitamin D3) 25 mcg (1,000 unit) tablet (Vitamin D3) 25 mcg PO DAILY vitamin D3 05/21/22 doxycycline hyclate 50 mg capsule 50 mg PO DAILY eyes 05/21/22 hydroxychloroquine 100 mg tablet 100 mg PO QHS Check with primary doctor 05/21/22 hydroxychloroquine 200 mg tablet 200 mg PO DAILY Check with primary doctor 05/21/22 multivitamin (Daily Multi-Vitamin tablet) 1 tab PO DAILY vitamin 05/21/22 multivitamin with minerals 1 tab PO DAILY vitamin 05/21/22 sodium fluoride 1.1 %-potassium nitrate 5 % dental paste (PreviDent 5000 Enamel Protect) 1 applic dental DAILY teeth 05/21/22 topiramate 100 mg tablet 50 mg PO QHS sjogrens 05/21/22 topiramate 100 mg tablet 100 mg PO DAILY sjogrens 05/21/22 trazodone 100 mg tablet 150 mg PO QHS sleep 05/21/22 valsartan 320 mg tablet 320 mg PO DAILY blood pressure 05/21/22 acetaminophen 500 mg tablet 1,000 mg PO Q6H PRN PRN Pain Score 1-5 #0 tabs 05/29 oxycodone 5 mg tablet 5 mg PO Q4H PRN Pain (Scale Score 6-10) 7 days #42 tabs 05/29/22 psyllium husk (aspartame) 3 gram oral powder packet (Daily Fiber (psyllium- aspartame)) 1 packet PO 0700 #0 ea 05/29/22 rivaroxaban 10 mg tablet (Xarelto) 10 mg PO DINNER 21 days #21 tabs 05/29/22 Hospital Course Operations - (See below.) Procedures None Summary of Care Provided Minutes Spent on Discharge: 35 Hospital Course: 66 year old female with below past medical history recent right total knee arthroplasty, right knee manipulation under anesthesia, right femur fracture, deep vein thrombosis ruled out, admitted to TCU with debility, here for rehabilitation, strengthening, prior to discharge home with . Discharge home with 05/31/2022, pending appeal, Home Health Care PT/OT/SN/ADAIR, Hospital bed, Bedside commode, Wheelchair. Physical Exam Const alert General Appearance: cooperative HEENT normocephalic Eyes PERRL and EOMs intact bilaterally Neck supple, no JVD and no carotid bruits Resp normal respiratory effort, normal air movement and clear to auscultation bilaterally Cardio regular rate and regular rhythm GI normal to inspection, nondistended, normoactive bowel sounds, non-tender and non-distended Extremity normal capillary refill Extremity Narrative: Right knee immobilizer. General Extremity: Negative for edema Skin no rashes or lesions noted General Skin Exam: no breakdown Psych affect normal Appearance: appropriate Weight / BMI Weight Weight: 82.508 kg Body Mass Index (BMI) 33.3 ABG / Lab / Microbiology Data Result Diagrams: 05/29/22 05:17 05/29/22 05:17 Laboratory: Laboratory Results - last 24 hr 05/29/22 05:17: WBC 4.6, RBC 3.99 L, Hgb 11.4 L, Hct 36.4 L, MCV 91.2, MCH 28.6, MCHC 31.3 L, RDW Std Deviation 45.0 H, RDW Coeff of Linden 13.4, Plt Count 371, MPV 9.3, Immature Gran % (Auto) 1.500 H, Neut % (Auto) 58.1, Lymph % (Auto) 25.3, M david % (Auto) 9.7, Eos % (Auto) 4.3, Baso % (Auto) 1.1 H, Absolute Neuts (auto) 2.7, Absolute Lymphs (auto) 1.17, Nucleated RBC % 0 05/29/22 05:17: Sodium 141, Potassium 4.1, Chloride 110 H, Carbon Dioxide 26.0, Anion Gap 5, BUN 13, Creatinine 0.66, Estim Creat Clear Calc 68.11, Est GFR (MDRD) Af Amer 116, Est GFR (MDRD) Non-Af 96, BUN/Creatinine Ratio 19.8, Glucose 92, Calcium 9.0 Microbiology: Microbiology 05/25/22 07:28 Nasal Secretion SARS-CoV-2 Antigen (Rapid) - Final 05/23/22 09:10 Nasal Secretion SARS-CoV-2 Antigen (Rapid) - Final 05/21/22 13:57 Nasal Secretion SARS-CoV-2 Antigen (Rapid) - Final D/C Instructions Discharge Diet: No restrictions Discharge Activity: Return to Normal Activity, May Shower and Use Walker Weight Bearing Status: Toe touch weight bearing (Right lower extremity.) Call your doctor if you observe: Fever of 101 or Higher, Inability to urinate, Inability to have a bowel movement, Shortness of breath, Dizziness, Fainting spells, Swelling in the ankles, Chest pain and Uncontrolled pain Additional Instructions: Discharge home with 05/31/2022, pending appeal, Home Health Care PT/OT/SN/ADAIR, Hospital bed, Bedside commode, Wheelchair. Please Follow Up With: Kamran Pastrana MD When: As scheduled. Meaningful Use Info Meaningful Use Diagnoses (Choose all that apply): None applicable Discharge Plan Admission Admit Date/Time: 05/21/22 12:05 Primary Reason for Your Visit: Debility. Attending Provider: Lyle Perez Chi Primary Care Provider: Malathi Dick Consulting Providers: Cong Levy Instructions Additional Instructions / Restrictions: Discharge home with 05/31/2022, pending appeal, Home Health Care PT/OT/SN/ADAIR, Hospital bed, Bedside commode, Wheelchair. Discharge Orders/Prescriptions Prescriptions: New acetaminophen 500 mg Tablet 1,000 mg PO Q6H PRN PRN (Reason: Pain Score 1-5) Qty: 0 0RF oxycodone 5 mg Tablet 5 mg PO Q4H PRN (Reason: Pain (Scale Score 6-10)) 7 Days Qty: 42 0RF Xarelto 10 mg Tablet 10 mg PO DINNER 21 Days Qty: 21 0RF Daily Fiber (psyllium-aspart) 3 gram Powder In Packet 1 packet PO 0700 Qty: 0 0RF Continued multivitamin [Daily Multi-Vitamin] Tablet 1 tab PO DAILY doxycycline hyclate 50 mg Capsule 50 mg PO DAILY amlodipine 5 mg Tablet 5 mg PO DAILY trazodone 100 mg Tablet 150 mg PO QHS valsartan 320 mg Tablet 320 mg PO DAILY chlordiazepoxide-clidinium 5-2.5 mg Capsule 1 cap PO DAILY Rx Instructions: ok to use pt from home hydroxychloroquine 200 mg Tablet 200 mg PO DAILY Rx Instructions: 200 mg in AM, 100mg @HS multivitamin with minerals Tablet 1 tab PO DAILY topiramate 100 mg Tablet 100 mg PO DAILY topiramate 100 mg Tablet 50 mg PO QHS carboxymethylcellulose sodium 1 % Drops, Liquid Gel 2 drp EACH EYE DAILY PRN (Reason: Dry Eyes) sodium fluoride-pot nitrate [PreviDent 5000 Enamel Protect] 1.1-5 % Paste 1 applic DENTAL DAILY Rx Instructions: brush teeth using soft brush for at least 1 min ; rinse mouth thoroughly and spit out cholecalciferol (vitamin D3) [Vitamin D3] 25 mcg (1,000 unit) Tablet 25 mcg PO DAILY hydroxychloroquine 100 mg Tablet 100 mg PO QHS Discontinued terbinafine HCl [Lamisil] 1 % Cream 1 applic TOPICAL BID PRN (Reason: Rash) oxycodone-acetaminophen [Percocet] 5-325 mg Tablet 1 tab PO Q4H PRN (Reason: Pain (Scale Score 6-10)) Referrals / Follow Up: Malathi Dick MD [Primary Care Provider] - Disposition Disposition (needs filled in before D/C Order can be placed): Home Health Service
[2022-05-29] MEDS: Hydroxychloroquine 200 MG Tablet 100 MG PO (20:20)
[2022-05-29] MEDS: traZODone 50 MG Tablet 150 MG PO (20:20)
[2022-05-29] MEDS: Topiramate 100 MG Tablet 50 MG PO (20:21)
[2022-05-29 20:33] VITALS: PULSE 74; RESP 16; O2SAT 98
[2022-05-30] MEDS: DOXYCYCLINE HYCLATE 50 MG CAPSULE PO (05:24)
[2022-05-30] MEDS: Psyllium 1 PACKET PO (05:25)
[2022-05-30] MEDS: Topiramate 100 MG Tablet PO (05:25)
[2022-05-30] MEDS: Losartan Potassium 100 MG Tablet PO (05:26)
[2022-05-30] MEDS: Nystatin Powder 15gm Bottle 1 APPLIC TOPICAL ×2 (05:26→21:53)
[2022-05-30] MEDS: amLODIPine 5 MG Tablet PO (05:26)
[2022-05-30] MEDS: Ammonium Lactate 225 gm Bottle 1 APPLIC TOPICAL (05:26)
[2022-05-30] MEDS: Menthol/Lanolin/Calamine/Znox 113 GM Tube 1 APPLIC TOPICAL ×2 (05:32→21:53)
[2022-05-30] MEDS: Cholecalciferol (VIT D3) 25 MCG TABLET (1,000 UNITS) PO (08:24)
[2022-05-30] MEDS: Hydroxychloroquine 200 MG Tablet PO (08:24)
[2022-05-30 08:28] VITALS: RESP 16; O2SAT 97
[2022-05-30] MEDS: oxyCODONE 5 MG Tablet PO ×2 (08:40→17:41)
[2022-05-30] MEDS: Acetaminophen 500 MG Tablet 1000 MG PO ×2 (08:41→17:42)
[2022-05-30] MEDS: Multivitamins,Ther W-Minerals Tablet 1 TABLET PO (09:43)
[2022-05-30 15:32] VITALS: BP 113/57; PULSE 71; RESP 18; TEMP 36.6; O2SAT 97
[2022-05-30] MEDS: Rivaroxaban 10 MG Tablet PO (17:40)
[2022-05-30] MEDS: Hydroxychloroquine 200 MG Tablet 100 MG PO (21:49)
[2022-05-30] MEDS: traZODone 50 MG Tablet 150 MG PO (21:51)
[2022-05-30] MEDS: Topiramate 100 MG Tablet 50 MG PO (21:52)
[2022-05-31] MEDS: Losartan Potassium 100 MG Tablet PO (04:53)
[2022-05-31] MEDS: Topiramate 100 MG Tablet PO (04:54)
[2022-05-31] MEDS: amLODIPine 5 MG Tablet PO (04:54)
[2022-05-31] MEDS: DOXYCYCLINE HYCLATE 50 MG CAPSULE PO (04:54)
[2022-05-31] MEDS: Ammonium Lactate 225 gm Bottle 1 APPLIC TOPICAL (04:54)
[2022-05-31] MEDS: Menthol/Lanolin/Calamine/Znox 113 GM Tube 1 APPLIC TOPICAL ×2 (04:55→22:47)
[2022-05-31] MEDS: Nystatin Powder 15gm Bottle 1 APPLIC TOPICAL ×2 (04:55→17:47)
[2022-05-31] MEDS: Psyllium 1 PACKET PO (05:09)
[2022-05-31 05:22] VITALS: BP 122/64; PULSE 66; RESP 18; TEMP 36.7; O2SAT 95
[2022-05-31] MEDS: Cholecalciferol (VIT D3) 25 MCG TABLET (1,000 UNITS) PO (07:59)
[2022-05-31] MEDS: Hydroxychloroquine 200 MG Tablet PO (08:00)
[2022-05-31] MEDS: Multivitamins,Ther W-Minerals Tablet 1 TABLET PO (08:01)
--- NOTE | 2022-05-31 14:00 | CASEMGMT ---
TANIA Note TANIA followed up on handoff for patient regarding DME equipment. No response from [facility]. TANIA called patient's , Morgan. Morgan was updated that we are working on process regarding DME's. TANIA called [facility] precision lens technician and was told that deliveries were not made on weekends and the office is closed. TANIA spoke to precision lens techniciandoor to door salesperson who stated that the chart said that there was a discrepancy on prescription. TANIA spoke to TANIA Parra who indicated that correct prescription had been sent at 3pm yesterday. TANIA called [facility]. They have a wheelchair but they can not process it over the weekend as the medical equipment staff is not present to process insurance. SW called [facility]. They have wheelchairs that are rented or bought. TANIA was advised that a wheelchair can not be processed over the weekend as no insurance home health staff are available but there are wheelchairs at the local store. TANIA called Morgan back to update him and he said that this is not his fault that the stuff was not procured and who is responsible for making this happen?. TANIA advised that staff has been working on it yesterday and today and continues to work on obtaining DME's. He requested this medical technical writer speak to his . TANIA spoke to RN caring for patient who stated that patient wants to talk to social sciences chair and is refusing to leave if she doesn't have the right equipment. TANIA met with patient and her was on speaker phone. TANIA updated patient. Patient said that she is not going home today if she does not have the right equipment. Patient said that she wants not a [address] wheelchair. TANIA explained the DME issue and patient said well, look in [place].. Look in [place]. SW advised that the DME facilities would look at availability. Patient said that she wanted to stay and SW explained that they would need to private pay and the said that's not our fault and we would have to look at that on the other side. Patient's said that patient has had good care at [facility] but stated he knows you can't kick a patient to the curb. TANIA advised that staff and social workers are attempting to secure items for discharge however, it is not the hospital responsibility when there is a supply change issue. TANIA will continue to work on the DME's. Of note, patient said that she has a recliner to sleep in. Patient also asked if the hospital bed will be one where her can pull her up. SW advised to consult with RN or DME provider about the ability of the hospital bed. Patient said that she wanted a nice BSC and then was advised her would have to pick a BSC out. Patient was also upset as she said the doctor had come in and said that there was a whole list of medical equipment at home that I needed and I never got that list. TANIA advised the list was hospital bed, BSC and wheelchair. TANIA updated Yeni Pace. TANIA also updated Kiana, community outreach worker. TANIA called precision lens technician for [facility] and requested wheelchair for patient. [facility].. TANIA received call from Kamlesh at [facility]. He has no hospital beds and it will be next week as the beds are on order. Kamlesh said that they don't do alot of other DME equipment except oxygen on the weekend. Kamlesh will call back. TANIA called Kamlesh and inquired on the status. He called [facility] to see if You had a bed and is waiting on a response. TANIA called [facility]. TANIA spoke to [facility] and was advised that the office was closed today and SW needed to call back Thursday. Kamlesh from [facility] called this medical technical writer back and said that You has no wheelchair. He can drop ship a wheelchair but it will be 2-3 days. Kamlesh said that their wheelchairs are standard midline wheelchairs. TANIA called Lety at [facility]. She said that since medical technical writer called this morning the case has been referred to and the staff is working on it. Lety said that once it is reviewed and a case is made a worker will update this medical technical writer. Lety said that this medical technical writer will get a phone call or update today. TANIA asked if this medical technical writer could call someone and Lety said that she can't send over another ticket for patient. TANIA will just need to wait for follow up. TANIA sent careport referrals to all agencies on list for review. TANIA called [facility] in [place]. Line disconnected. TANIA received call from Liliana at [facility]. They were able to process all the order. Patient will get BSC, hospital bed and wheelchair. TANIA and RN met with patient and called on the phone. SW advised that [facility] will call him and set up time for delivery (this was at 2pm). said this is good news. Patient voiced that there is an issue as the has to play at [employer] [facility] and then from [place] come to [place] and she needs a wheelchair at discharge. SW explained that staff will assist with wheeling her downstairs. said that no one will be home after 3pm and social sciences chair advised maybe a friend or family member could come and patient said no one has a bush. Patient's said that they could see about the daughter coming and being there for the delivery. SW called Kamlesh at [facility] and was advised to cancel the order as all items were secured. Plan: Home with all DME equipment. TANIA updated Yeni HARRINGTON
[2022-05-31] MEDS: Acetaminophen 500 MG Tablet 1000 MG PO ×2 (15:36→22:48)
[2022-05-31] MEDS: oxyCODONE 5 MG Tablet PO ×2 (15:37→22:49)
[2022-05-31 15:52] VITALS: BP 131/72; PULSE 80; RESP 16; TEMP 36.7; O2SAT 97
[2022-05-31] MEDS: Rivaroxaban 10 MG Tablet PO (17:47)
--- NOTE | 2022-05-31 18:19 | CM.ED ---
TANIA received voice mail from Rmay, patient's , and he said that they had not heard from DME provider. TANIA called [facility] and spoke to Tonio. Tonio said that everything looks good for delivery but indicated it does not say anything is in route. Tonio said that everything looks good for delivery but nothing is in route. Tonio said it was not sent through . Tonio said that he is resending the request and maybe a step got skipped. Tonio said that he has taken care of it. He said for patient and to answer all phones that say private and blocked. TANIA updated Ramy with this information especially to answer all calls with private or blocked numbers and Ramy said that he will update patient. TANIA was advised by RN at [facility] that patient reports that they have not heard from the [facility] staff and are not leaving. Tiki FLETCHER
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
[2022-05-31] MEDS: traZODone 50 MG Tablet 150 MG PO (22:45)
[2022-05-31] MEDS: Topiramate 100 MG Tablet 50 MG PO (22:46)
[2022-05-31] MEDS: Hydroxychloroquine 200 MG Tablet 100 MG PO (22:46)
[2022-06-01] MEDS: Menthol/Lanolin/Calamine/Znox 113 GM Tube 1 APPLIC TOPICAL (06:01)
[2022-06-01] MEDS: Nystatin Powder 15gm Bottle 1 APPLIC TOPICAL ×2 (06:01→17:02)
[2022-06-01] MEDS: Ammonium Lactate 225 gm Bottle 1 APPLIC TOPICAL (06:02)
[2022-06-01] MEDS: Acetaminophen 500 MG Tablet 1000 MG PO ×3 (06:06→21:51)
[2022-06-01] MEDS: amLODIPine 5 MG Tablet PO (06:06)
[2022-06-01] MEDS: Losartan Potassium 100 MG Tablet PO (06:06)
[2022-06-01] MEDS: oxyCODONE 5 MG Tablet PO ×3 (06:07→21:52)
[2022-06-01] MEDS: Topiramate 100 MG Tablet PO (06:07)
[2022-06-01] MEDS: DOXYCYCLINE HYCLATE 50 MG CAPSULE PO (06:08)
[2022-06-01 06:12] VITALS: BP 131/57; PULSE 61
[2022-06-01] MEDS: Psyllium 1 PACKET PO (07:27)
[2022-06-01] MEDS: Hydroxychloroquine 200 MG Tablet PO (07:51)
[2022-06-01] MEDS: Multivitamins,Ther W-Minerals Tablet 1 TABLET PO (07:51)
[2022-06-01] MEDS: Cholecalciferol (VIT D3) 25 MCG TABLET (1,000 UNITS) PO (07:51)
[2022-06-01 15:00] VITALS: BP 101/59; PULSE 69; RESP 16; TEMP 35.9; O2SAT 99
[2022-06-01] MEDS: Rivaroxaban 10 MG Tablet PO (17:01)
[2022-06-01] MEDS: Topiramate 100 MG Tablet 50 MG PO (21:52)
[2022-06-01] MEDS: Hydroxychloroquine 200 MG Tablet 100 MG PO (21:54)
[2022-06-01] MEDS: traZODone 50 MG Tablet 150 MG PO (21:55)
[2022-06-02 06:19] VITALS: BP 137/56; PULSE 59
[2022-06-02] MEDS: Menthol/Lanolin/Calamine/Znox 113 GM Tube 1 APPLIC TOPICAL (06:20)
[2022-06-02] MEDS: Losartan Potassium 100 MG Tablet PO (06:21)
[2022-06-02] MEDS: DOXYCYCLINE HYCLATE 50 MG CAPSULE PO (06:21)
[2022-06-02] MEDS: Topiramate 100 MG Tablet PO (06:21)
[2022-06-02] MEDS: amLODIPine 5 MG Tablet PO (06:21)
[2022-06-02] MEDS: Ammonium Lactate 225 gm Bottle 1 APPLIC TOPICAL (06:22)
[2022-06-02] MEDS: Nystatin Powder 15gm Bottle 1 APPLIC TOPICAL ×2 (06:22→17:17)
[2022-06-02] MEDS: Psyllium 1 PACKET PO (07:01)
[2022-06-02] MEDS: Cholecalciferol (VIT D3) 25 MCG TABLET (1,000 UNITS) PO (08:40)
[2022-06-02] MEDS: Hydroxychloroquine 200 MG Tablet PO (08:40)
[2022-06-02] MEDS: oxyCODONE 5 MG Tablet PO ×2 (08:42→17:17)
[2022-06-02] MEDS: Acetaminophen 500 MG Tablet 1000 MG PO ×2 (08:42→17:17)
[2022-06-02 08:52] VITALS: PULSE 77; RESP 16; O2SAT 97
--- NOTE | 2022-06-02 09:49 | CASEMGMT ---
Social Work Spoke with [facility] to confirm delivery of DME today. [facility] confirmed delivery is scheduled between 0845 and 1245 and is aware. SW spoke with to confirm he is at the home for the DME delivery. confirmed. SW again apologized for any inconvenience and encouraged to contact this worker if there are any other issues. can transport pt at 1800 after work. Updated IDT. Plan: DC 06/02 JEREMIE RosenW
[2022-06-02] MEDS: Multivitamins,Ther W-Minerals Tablet 1 TABLET PO (10:23)
[2022-06-02 16:00] VITALS: BP 124/69; PULSE 67; RESP 16; TEMP 36.4; O2SAT 97
[2022-06-02] MEDS: Rivaroxaban 10 MG Tablet PO (17:12)
--- NOTE | 2022-06-03 08:31 | MDS.RN ---
Information for the mds was obtained from review of the clinical record, interview of resident, staff, and direct observation of resident's care.
== END 2022-06-02 19:30 | disposition home health service (06) | DRG 561 ==
PROVIDERS: Admitting Provider Family Medicine Geriatric Medicine; PCP Family Medicine; Visit Provider Family Medicine Geriatric Medicine
DX: Z47.89 Encounter for other orthopedic aftercare (principal); B35.1 Tinea unguium; E55.9 Vitamin D deficiency, unspecified; M24.561 Contracture, right knee; G47.33 Obstructive sleep apnea (adult) (pediatric); M35.00 Sjogren syndrome, unspecified; K21.9 Gastro-esophageal reflux disease without esophagitis; K58.9 Irritable bowel syndrome, unspecified; M79.7 Fibromyalgia; I10 Essential (primary) hypertension; L71.9 Rosacea, unspecified; K90.0 Celiac disease; Z79.899 Other long term (current) drug therapy; Z96.651 Presence of right artificial knee joint; S72.91XD Unspecified fracture of right femur, subsequent encounter for closed fracture with routine healing; X58.XXXD Exposure to other specified factors, subsequent encounter
CPT/HCPCS: 36415; 80048; 85014; 85018; 85025; 87426; 87811; 97110; 97116; 97162; 97166; 97530; 97535; 97802; A4216